=== PATIENT | female | born 1940 | race Caucasian/White ===

== ENCOUNTER → 2018-03-29 | Outpatient (CLI) | payer MEDICARE, OTHER ==
[~2018-03-29] MED LIST: ALB4 PO; AZEL205.2 NS; CYC10 PO; DAR100 PO; DICL-189 PO; DULERAPT INH; EST625 PO; FIO PO; FURO-1 PO; GABA-1 PO; LEVO75TA68 PO; MOME17SP9 NS; MON10 PO; ONDA4TAB97 PO; QVAR INH; RIZA10 PO; RIZA10TA22 PO; VERA180C7 PO; ZILE600T5 PO; [UNRECOGNIZED DRUG - CODE] PV; [UNRECOGNIZED DRUG - OTHER] INH
--- NOTE | 2018-03-29 14:50 | RADIOLOGY IMAGING REPORT ---
FACILITY: [facility] PATIENT NAME: Micaela Phillips : 1940 MR: [id number] V: [id number] EXAM DATE: ORDERING PHYSICIAN: GEORGE LO TECHNOLOGIST: Location: [facility] [place] Patient: Micaela Phillips : 1940 Visit/Account:[id number] Date of Sevice: 03/29/2018 CT right shoulder Indication: Right shoulder pain. Degenerative disease. Operative planning. Comparison: None available. Technique: Axial CT images were obtained through the right shoulder. Reformatted coronal and sagittal images were reviewed. One of the following dose optimization techniques was utilized in the performance of this exam: Autom ated exposure control; adjustment of the mA and/or kV according to the patient's size; or use of an i terative reconstruction technique. Specific details can be referenced in the facility's radiology C T exam operational policy. Findings: There are mild changes of acromioclavicular joint osteoarthritis identified. There is severe glenohumeral joint osteoarthritis identified. There is bony abutment of the humeral h ead and glenoid articular surfaces. Extensive subchondral sclerosis and subchondral cyst formation is identified. Protuberant osteophytes noted. There is loss of glenoid bone stock nearly to the base of the acromion. When measured at the midportion of the glenoid, there is approximately 6 degrees of ac quired glenoid retroversion. There is a glenohumeral joint effusion identified. Several joint bodies are seen within the axillary recess of the joint space. With respect to the soft tissues, the rotator cuff musculature appears normal in bulk without evidenc e to suggest fatty atrophy. No axillary adenopathy is seen. Images that include the right lung demonstrate minimal dependent atelectasis. IMPRESSION: 1. Severe right shoulder glenohumeral joint osteoarthritis with loss of glenoid bone stock and with a pproximately 6 degrees of acquired glenoid retroversion. 2. Mild acromioclavicular joint osteoarthritis. 3. Normal bulk of the rotator cuff musculature without evidence of fatty atrophy. Report Dictated By: Jean Pierre López at 03/29/2018 2:34 PM Report E-Signed By: Jean Pierre López at 03/29/2018 2:45 PM [id number]
== END ==
LOC: CT 03:36
PROVIDERS: ATTEND Orthopaedic Surgery Hand Surgery
DX: M19.011 Primary osteoarthritis, right shoulder (principal)